=== PATIENT | male | born 1990 | race Caucasian/White ===

== ENCOUNTER 2016-09-24 22:03 | Emergency (ER) | payer OTHER ==
[2016-09-24 22:29] VITALS: TEMP 100
[2016-09-24] MEDS ORDERED: LIDOCAINE HCL 2% (VISCOUS) 20 ML SOL MT ONE (22:30)
[2016-09-24] MEDS ORDERED: ALUMINUM/MAGNESIUM 30 ML SUS PO ONE (22:31)
[2016-09-24] MEDS ORDERED: ALUMINUM/MAGNESIUM 30 ML SUS ONE (22:37)
[2016-09-24] MEDS ORDERED: LIDOCAINE HCL 2% (VISCOUS) 20 ML SOL ONE (22:37)
[2016-09-24 22:43] VITALS: RESP 14; O2SAT 98
[2016-09-24] MEDS ORDERED: METOPROLOL SUCCINATE 50 MG ER TAB PO ONE (22:43)
[2016-09-24] MEDS ORDERED: METOPROLOL SUCCINATE 50 MG ER TAB ONE (22:44)
[2016-09-24 23:28] LABS: CALCIUM 9.3 mg/dl (8.5-10.1); GLOM FILT RATE 116 mL/min (>60); POTASSIUM 3.6 mMol/L (3.5-5.1); SODIUM 140 mMol/L (136-145); THYROID STIMULATING HORMONE 2.194 uIU/ml (0.358-3.740)
[2016-09-25] VITALS: BP 164/114; PULSE 89
== END 2016-09-24 23:55 | disposition home or self-care (01) | DRG 392 ==
LOC: ED 22:03
DX: K21.9 Gastro-esophageal reflux disease without esophagitis (principal); I10 Essential (primary) hypertension; F41.9 Anxiety disorder, unspecified
CPT/HCPCS: 36415; 71020; 80048; 84443; 84484; 93005; 99284